=== PATIENT | female | born 1955 | race Caucasian/White ===

== ENCOUNTER 2016-05-27 13:02 | Emergency (ER) | payer BC ==
[2016-05-27] MEDS ORDERED: NS 500 ML IV ONE (13:58)
--- NOTE | 2016-05-27 13:58 | EDPHY ---
H & P Time Seen by Provider: 05/27/16 13:16 HPI/ROS: CHIEF COMPLAINT: drained feeling HISTORY OF PRESENT ILLNESS: The patient is a 61-year-old female with a history of diabetes, hypertension and high cholesterol as well as a genetic clotting disorder who presents to the emergency department with significant episodes of a drained feeling. Patient states she has had 3 episodes in last 3 weeks. Her most recent episode was today. She was walking in a store when she had a sudden sense of feeling tired. She had nausea with lightheadedness. She had to sit down. She also developed pain between her scapula and the back. This was moderate. Did not radiate. No jaw or chest pain. Patient has had no diaphoresis. No abdominal pain. REVIEW OF SYSTEMS: My complete review of systems is negative except as mentioned in the HPI. Past Medical/Surgical History: Includes diabetes, hypertension, high cholesterol, SVT Social history: The patient does not smoke. Smoking Status: Never smoked Physical Exam: Vitals noted GENERAL: Well-appearing, in no acute distress, alert. HEENT: Eyes normal to inspection, normal pharynx, no signs of dehydration. NECK: No thyromegaly, no lymphadenopathy, supple. RESPIRATORY: Clear to auscultation bilaterally, no rales, rhonchi or wheezing. CVS: Regular rate and rhythm, no rubs, murmurs, or gallops. ABDOMEN: Soft, nontender, nondistended, no organomegaly. BACK: Normal to inspection, no CVA tenderness. SKIN: Normal color, no rash, warm, dry. No pallor. EXTREMITIES: No pedal edema, no calf tenderness, no Homans sign or cords, no joint swelling. NEURO/PSYCH: Higher functions: Alert and Oriented. Normal speech and cognition. Normal mood and affect. Cranial nerves: Normal as tested. Cerebellar: Normal as tested. Good finger to nose, good [id number], normal gait. Peripheral exam: [Normal motor exam. Normal sensation. Normal reflexes. Constitutional: Initial Vital Signs Temperature (C) 36.5 C 05/27/16 13:04 Heart Rate 75 05/27/16 13:04 Respiratory Rate 14 05/27/16 13:04 Blood Pressure 166/98 H 05/27/16 13:04 O2 Sat (%) 97 05/27/16 13:04 O2 Delivery Mode Room Air Allergies/Adverse Reactions: No Known Allergies Allergy (Unverified 05/11/16 22:59) Home Medications: Medication Instructions Recorded Benicar 05/11/16 Celexa 05/11/16 Crestor 05/11/16 Metformin HCl 05/11/16 Hydrocodone/APAP /325 [[place] 1 each PO Q4-6PRN PRN #15 tab 05/12/16 5/325 (*)] Medical Decision Making - Diagnostics EKG Interpretation: EKG shows normal sinus rhythm, normal rate, normal axis, normal intervals. There are no ST or T-wave abnormalities. EKG is normal as interpreted by me. ED Course/Re-evaluation: In the emergency department I discussed possible etiologies with the patient. I answered all her questions. IV was placed. Laboratory studies, CT imaging and EKG were ordered. Patient's laboratory studies were unremarkable. CO2 was slightly low at 20. Her white count was normal at 7. She was not anemic. Her troponin was negative. Her chemistry, lipase and LFTs were normal. 15 15: I discussed the results with the patient. I answered all her questions. I am awaiting CT results. The patient states she is feeling better. CT of the head: Please refer the dictated report by Dr. Nghia Whaley. Negative. CT angio of the chest: Please refer the dictated report by Dr. Nhgia Whaley. No pulmonary embolus or dissection. The patient has a 4 cm ascending aneurysm. I discussed the results with Dr. Paulino from Cardiology. He will follow up the patient in his office. I discussed the results with the patient. I answered all her questions. At the time of discharge she was doing well. She had no focal deficits. She denies chest pain. She will follow up with her primary care physician. She is given warnings prior to leaving. She will return with worsening symptoms. Differential Diagnosis: My differential includes but is not limited to pulmonary embolus, aortic aneurysm, dissection, ACS, acute [place], electrolyte abnormality, sugar abnormality , CVA, vasovagal episode, dysrhythmia - Data Points Laboratory Results: Laboratory Results 05/27/16 13:55 05/27/16 13:55 05/27/16 13:55 WBC 7.02 10^3/uL (3.80-9.50) RBC 4.44 10^6/uL (4.18-5.33) Hgb 13.3 g/dL (12.6-16.3) Hct 39.1 % (38.0-47.0) MCV 88.1 fL (81.5-99.8) MCH 30.0 pg (27.9-34.1) MCHC 34.0 g/dL (32.4-36.7) RDW 13.4 % (11.5-15.2) Plt Count 272 10^3/uL (150-400) MPV 10.8 fL (8.7-11.7) Neut % (Auto) 62.9 % (39.3-74.2) Lymph % (Auto) 28.9 % (15.0-45.0) Parmer % (Auto) 6.3 % (4.5-13.0) Eos % (Auto) 0.9 % (0.6-7.6) Baso % (Auto) 0.6 % (0.3-1.7) Nucleat RBC Rel Count 0.0 % (0.0-0.2) Absolute Neuts (auto) 4.42 10^3/uL (1.70-6.50) Absolute Lymphs (auto) 2.03 10^3/uL (1.00-3.00) Absolute Monos (auto) 0.44 10^3/uL (0.30-0.80) Absolute Eos (auto) 0.06 10^3/uL (0.03-0.40) Absolute Basos (auto) 0.04 10^3/uL (0.02-0.10) Absolute Nucleated RBC 0.00 10^3/uL (0-0.01) Immature Gran % 0.4 % (0.0-1.1) Immature Gran # 0.03 10^3/uL (0.00-0.10) D-Dimer 0.30 ug/mLFEU (0.00-0.50) Sodium 143 mEq/L (134-144) Potassium 4.0 mEq/L (3.5-5.2) Chloride 108 mEq/L (97-110) Carbon Dioxide 20 L mEq/l (22-31) Anion Gap 15 mEq/L (8-16) BUN 16 mg/dL (7-23) Creatinine 0.8 mg/dL (0.6-1.0) Estimated GFR > 60 Glucose 102 H mg/dL (70-100) Calcium 9.4 mg/dL (8.5-10.4) Total Bilirubin 0.4 mg/dL (0.1-1.4) Conjugated Bilirubin 0.1 mg/dL (0.0-0.5) Unconjugated Bilirubin 0.3 mg/dL (0.0-1.1) AST 30 IU/L (14-46) ALT 44 IU/L (9-52) Alkaline Phosphatase 96 IU/L (38-126) Troponin I < 0.012 ng/mL (0-0.034) Total Protein 7.6 g/dL (6.3-8.2) Albumin 4.2 g/dL (3.5-5.0) Lipase 126.0 IU/L (23-300) Medications Given: Discontinued Medications Sodium Chloride (Ns) 500 mls @ 0 mls/hr IV ONCE ONE PRN Reason: As Directed Stop: 05/27/16 13:59 Last Admin: 05/27/16 14:12 Dose: 500 mls Departure - Departure Disposition: Home, Routine, Self-Care Clinical Impression: Lightheaded Back pain Qualifiers: Back pain location: thoracic back pain Chronicity: acute Back pain laterality: midline Qualifier Code: (M54.6) Pain in thoracic spine Condition: Good Instructions: Back Pain (ED), Lightheadedness (ED) Additional Instructions: Return with worsening symptoms or any other concerns. You have been given follow-up information for Cardiology. You have a 4 cm ascending aortic aneurysm. Please call Saturday to make an appointment. You also need follow up with a primary care physician. Referrals: [facility] [Provider Group] - 5-7 days, call for appt. Kimmie Canchola MD [Medical Doctor] - 5-7 days, call for appt.
[2016-05-27 14:06] LABS: % IMMATURE GRANULYOCYTES 0.4 % (0.0-1.1); ABSOLUTE IMMATURE GRANULOCYTES 0.03 10^3/uL (0.00-0.10); ADD DIFF? NO; ADD MORPH? NO; ADD SCAN? NO; ATYPICAL LYMPHOCYTE FLAG 10 (0-99); FRAGMENT RBC FLAG 0 (0-99); HEMATOCRIT 39.1 % (38.0-47.0); HEMOGLOBIN 13.3 g/dL (12.6-16.3); LEFT SHIFT FLG 0 (0-99); LIPEMIA HEMOLYSIS FLAG 90 (0-99); MEAN CELL VOLUME 88.1 fL (81.5-99.8); MEAN PLATELET VOLUME 10.8 fL (8.7-11.7); PLATELET CLUMPS FLAG 20 (0-99); PLATELET COUNT 272 10^3/uL (150-400); RED BLOOD CELL COUNT 4.44 10^6/uL (4.18-5.33); RED CELL DISTRIBUTION WIDTH 13.4 % (11.5-15.2)
--- NOTE | 2016-05-27 14:11 | CPEKG ---
Heart Rate: 68 RR Interval: 882 P-R Interval: 208 QRSD Interval: 92 QT Interval: 428 QTC Interval: 456 P [place]: 51 QRS [place]: 5 T Wave [place]: 16 EKG Severity - NORMAL ECG - EKG Impression: SINUS RHYTHM Electronically Signed By: Maranda Stanford 27-May-2016 15:11:20
[2016-05-27 14:22] VITALS: O2SAT 96
[2016-05-27 14:22] LABS: ALANINE AMINOTRANSFERASE 44 IU/L (9-52); ALBUMIN 4.2 g/dL (3.5-5.0); ALKALINE PHOSPHATASE 96 IU/L (38-126); ANION GAP 15 mEq/L (8-16); ASPARTATE AMINOTRANSFERASE 30 IU/L (14-46); BILIRUBIN,TOTAL 0.4 mg/dL (0.1-1.4); BILIRUBIN-CONJUGATED 0.1 mg/dL (0.0-0.5); BILIRUBIN-UNCONJUGATED 0.3 mg/dL (0.0-1.1); CALCIUM 9.4 mg/dL (8.5-10.4); CARBON DIOXIDE 20 mEq/l (22-31); CHLORIDE 108 mEq/L (97-110); CREATININE 0.8 mg/dL (0.6-1.0); GLOMERULAR FILTRATION RATE > 60; GLUCOSE 102 mg/dL (70-100); SODIUM 143 mEq/L (134-144); TOTAL PROTEIN 7.6 g/dL (6.3-8.2)
[2016-05-27 14:33] LABS: TROPONIN I < 0.012 ng/mL (0-0.034)
[2016-05-27] MEDS ORDERED: IOPAMIDOL (ISOVUE 370) 75 ML BTL IV ONE ×2 (14:40→15:12)
--- NOTE | 2016-05-27 15:18 | CT ---
CT Scan of the Head (Without Contrast) Clinical Indications: 61-year-old female who sustained a left wrist fracture on May 11, 2016, a nd since then has had a couple of episodes of weakness, lightheadedness, and near-syncope. Technique: Axial CT images were acquired from the foramen magnum through the skull vertex, without i ntravenous contrast. Soft tissue, subdural, and bone windows were reviewed on the computer workstati on. Images were reformatted at 5.00 and 1.25 mm increments, and are reformatted in sagittal and brandi nal planes. DFOV is 25.0 cm. Dose reduction techniques were utilized. Comparison Study: Unenhanced CT scan of the brain, dated May 12, 2016. Findings: There are no new mass lesions identified, and there is no evidence of an acute or subacute intracranial hemorrhage, or an acute infarct. The ventricles and subarachnoid spaces are normal in s ize for this age group. The bone windows reveal no sign of a fracture. The visualized paranasal sin uses and mastoid air cells are free of fluid. There is trace mucosal thickening in the maxillary sinu ses. There is some faint mural calcification of the cavernous carotid arteries. The craniocervical ju nction, sella turcica, calcified pineal gland, and the orbits are unremarkable. There is some physiol ogic interhemispheric falcine calcification. The previously questioned tiny serpentine-shaped venous varix along the posterior left interhemispheric region is currently much less noticeable, with no con vincing abnormality in this location. If there is continuing clinical concern regarding the patient's symptoms, MR imaging could be considered, if otherwise not contraindicated. Impression: There is no acute intracranial abnormality, or substantial change from May 12, 2016 . Results were called to Dr. Maranda Stanfrod. A test result has been communicated to a licensed care provider and documented in [employer], 3:14:10 PM , 05/27/2016, [employer] Message ID [id number].
--- NOTE | 2016-05-27 15:33 | CT ---
Contrast-Enhanced CT Scan of the Chest (CT Angiography) Clinical History: 61-year-old female who sustained a prior left wrist fracture and has complained of some pain across the upper back with nausea and lightheadedness. Rule out PE. The patient has a histo ry of chronic hypertension and diabetes. Technique: A timing bolus was used. The patient received 90 mL of IV Isovue-370 without complication. A multidetector helical CT scan was obtained from the base of the neck inferiorly to the upper abdom en, reformatted at 1.50 and 4/3 mm increments, and reviewed at a variety of window/level settings. Mu ltiplanar reconstructions were reviewed on the workstation. The DFOV is 36.0 cm. A dose reduction pro tocol was used. Comparison Study: None. Findings: CT Angiography of the Chest: The main pulmonary artery, the main right and the main left pulmonary ar teries, and the first, second, third order pulmonary artery segments are contrast-opacified. There is no filling defect to suggest acute or chronic thromboemboli. There is no interventricular septal bow ing. There is no reflux of contrast into the intrahepatic IVC. There is no pericardial effusion. Ther e is borderline-aneurysmal dilatation of the ascending thoracic aorta, measuring 4.0 x 4.0 cm at the crossing right pulmonary artery. The descending thoracic aorta at this level measures 2.2 x 2.4 cm. T here is an aberrant right subclavian artery which crosses behind the esophagus. There is no evidence of aneurysm. The visualized upper abdominal aorta is normal. Contrast-Enhanced CT Scan of the Chest: The visualized portions of the thyroid gland are normal. Ther e is no axillary or intrathoracic adenopathy. There are some minor dependent changes seen posteriorly . There is no focal alveolar consolidation, pulmonary nodule, or pleural effusion. The osseous struct ures are notable for some degenerative features of the thoracic spine and trace mid-dextrothoracic cu rvature. There is no aggressive lesion. The subcutaneous tissues are unremarkable. The visualized upp er abdomen is notable for some mild hepatic steatosis. There is a heterogeneous appearance of the spl een consistent with the arterial phase of contrast. Impression: 1. There is no CT evidence of pulmonary artery thromboemboli. 2. Borderline-aneurysmal dilatation of the ascending thoracic aorta, measuring 4.0 cm with no dissect ion or mediastinal hematoma. There is also an aberrant right subclavian artery. Results were discussed with Dr. Maranda Stanford. A test result has been communicated to a licensed care provider and documented in [employer], 3:22:07 PM , 05/27/2016, [employer] Message ID [id number].
[2016-05-27 15:45] VITALS: BP 139/91; PULSE 70; RESP 16; TEMP 97.9
== END 2016-05-27 15:44 | disposition home or self-care (01) ==
DX: R42 Dizziness and giddiness (principal); M54.6 Pain in thoracic spine; E11.9 Type 2 diabetes mellitus without complications; I10 Essential (primary) hypertension

== ENCOUNTER 2017-03-24 15:43 | Emergency (ER) | payer BC ==
[2017-03-24 15:52] VITALS: TEMP 98.6
--- NOTE | 2017-03-24 17:06 | EDPHY ---
HPI/HX/ROS/PE/MDM Narrative: CHIEF COMPLAINT: Head injury HPI: The patient is a 62 y/o female complaining of nausea and vomiting following a head injury. Saturday night, 4 days ago, she was chasing her dog in [place] when she slipped on ice and fell. She initially didn't notice that she had hit her head. The next morning she noticed a bump on the back of her head but remained otherwise asymptomatic. Saturday she woke up and felt nauseated. Later in the afternoon, she became sensitive to lights and noise. That night, as she drove up to [place], she began feeling motion sick. She threw up when she got home and then went to bed. She slept until noon today but her symptoms were still present prompting her visit. She denies taking any anticoagulants. She denies any other associated symptoms. REVIEW OF SYSTEMS: Aside from elements discussed in the HPI, a comprehensive 10-point review of systems was reviewed and is negative. 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 ENT:Eyes are normal to inspection. ENT inspection normal. Neck: Normal inspection. Full range of motion. Respiratory:No respiratory distress. Breath sounds normal bilaterally. Cardiovascular: Regular rate and rhythm. Strong peripheral pulses. Normal cap refill. Abdomen:The abdomen is nontender to palpation. There are no peritoneal signs. There are normal bowel sounds. Back: Normal to inspection. No tenderness to palpation. Skin: Normal color. No rash. Warm and dry. Extremities: Normal appearance. Full range of motion. Neuro: Oriented x3. Normal motor function. Normal sensory function. ED Course: I advised the patient that a CT was not necessarily warranted as she has symptoms only of a concussion and not of any other neurologic precesses. She has had two other CTs this year. She agrees to not have a CT. Concussion protocol given. Follow-up and return precautions given. MDM: This patient presents with signs and symptoms of concussion, a few days after minor head injury. She is not on anticoagulants and is fairly low risk for intracranial bleed. I would typically perform a CTH to rule out this possibility, but I note that this patient's chart indicates that she has undergone several CT's within the last year, so I had an extensive discussion with her regarding the choice of testing. Ultimately, the patient has decided to decline CTH at this time, which I think is a reasonable decision. She is fully aware of our inability to 100% exclude potentially serious injury without testing. We discussed strict return precautions. General Time Seen by Provider: 03/24/17 17:03 Initial Vital Signs: Initial Vital Signs Temperature (C) 37.0 C 03/24/17 15:49 Heart Rate 91 03/24/17 15:49 Respiratory Rate 16 03/24/17 15:49 Blood Pressure 123/75 H 03/24/17 15:49 O2 Sat (%) 97 03/24/17 15:49 O2 Delivery Mode Room Air Allergies/Adverse Reactions: No Known Allergies Allergy (Unverified 05/11/16 22:59) Home Medications: Medication Instructions Recorded Celexa 05/11/16 Crestor 05/11/16 Departure - Departure Disposition: Home, Routine, Self-Care Clinical Impression: Concussion Condition: Good Instructions: Concussion (ED) Additional Instructions: 1. Use Tylenol or ibuprofen as needed for headache. DO NOT USE ASPIRIN. 2. Brain rest while symptoms are present. Your symptoms could last days to weeks. Avoid screen time including TV, computers, phones, and video games. It is important to avoid any activities that could put you at risk for another head injury while your symptoms are present. No bicycling, contact sports, skiing, or other risky activities. Expect a follow up call from us in 10-14 days to discuss any ongoing concussion symptoms. They will refer you to a head injury specialist if necessary. 3. Follow up with your primary care provider in the next 3-4 days if symptoms do not improve. 4. Return to the Emergency Department if you develop a severe headache, numbness or weakness in your extremities, difficulty speaking, difficulty walking, uncontrollable vomiting, or other worsening of condition. Referrals: Stefano Poe [Primary Care Provider] - As per Instructions Report Scribed for: Gamaliel Johnson Report Scribed by: Olga Gonzalez Date of Report: 03/24/17 Time of Report: 17:05 Physician Review and Approval Statement: Portions of this note were transcribed by an ED scribe. I personally performed the history, physical exam, and medical decision making; and confirm the accuracy of the information in the transcribed note.
[2017-03-24] MEDS ORDERED: ONDANSETRON 4MG PREPACK#2 BTL TAKEHOME ONE (17:32)
[2017-03-24] MEDS ORDERED: ACETAMINOPHEN 500 MG TAB PO ONE (17:58)
[2017-03-24] MEDS ORDERED: ONDANSETRON DISINTEGRATING 4 MG TAB PO ONE (17:58)
[2017-03-24 18:25] VITALS: BP 196/99; PULSE 66; RESP 18; O2SAT 95
== END 2017-03-24 18:27 | disposition home or self-care (01) ==
DX: S06.0X0A Concussion without loss of consciousness, initial encounter (principal); W00.0XXA Fall on same level due to ice and snow, initial encounter; Y93.02 Activity, running

== ENCOUNTER 2017-05-04 17:29 | Emergency (ER) | payer BC ==
[2017-05-04 17:34] VITALS: PULSE 73; RESP 16
[2017-05-04] MEDS ORDERED: TDAP ADULT 0.5 ML INJ (BOOSTRIX) IM ONE (17:48)
[2017-05-04] MEDS ORDERED: LET GEL TOPICAL 1 EA SYR TP ONE ×2 (17:50→17:56)
--- NOTE | 2017-05-04 18:28 | EDPHY ---
H & P Stated Complaint: missed last step of a ladder, fell back lac to back of head no LOC Time Seen by Provider: 05/04/17 17:41 HPI/ROS: Chief complaint: Head injury History of present illness: This is a 62-year-old female, who reports herself as generally healthy, on no blood thinners, who presents to the emergency department for head injury. Patient was stepping down a small ladder when she missed the last step, lost her balance and fell backwards striking her head against the ground. She has some trouble remembering the event immediately after the injury. Although she does not think she fully lost consciousness. She has noted a cut to the left side of her head. Bleeding has been controlled. Minimal discomfort. She denies pain in, our trauma to other parts of body including neck, back, chest, abdomen, pelvis or extremities. No neurologic symptoms including no significant headache, no paresthesias, no weakness or paralysis, no bowel or bladder dysfunction. She is unsure of her last tetanus shot. Review of systems: A 10 point review of systems was obtained and other than described above was negative - Personal History Current Tetanus Diphtheria and Acellular Pertussis (TDAP): Unsure - Medical/Surgical History Hx Asthma: No Hx Chronic Respiratory Disease: No Hx Diabetes: No Hx Cardiac Disease: No Hx Renal Disease: No Hx Cirrhosis: No Hx Alcoholism: No Hx HIV/AIDS: No Hx Splenectomy or Spleen Trauma: No Other PMH: DM2, high BP, high cholesterol - Social History Smoking Status: Never smoked - Physical Exam Exam: General Appearance: Alert, nontoxic. Eyes: PERRLA ENT: No hemotympanum, no Greenberg sign, no raccoon eyes Respiratory: Lungs clear to auscultation bilaterally Cardiac: Regular rate and rhythm. Gastrointestinal: Bowel sounds normal. Abdomen soft, nondistended, nontender. Neurological: Alert and oriented x4. Cranial nerves 2-12 grossly intact. Strength and sensation intact and symmetrical. Ambulating without difficulty. Skin: 1 cm laceration left parietal scalp. Otherwise a head-to-toe examination does not reveal lesions consistent with trauma. Musculoskeletal: Mild tenderness around the laceration noted above without crepitus or bony deformity. The rest of the head is nontender. The spine is nontender to palpation along its entire length without crepitus, bony deformity or step-off. Chest wall intact palpation. Moving all extremities without difficulty. Constitutional: Initial Vital Signs Temperature (C) 36.9 C 05/04/17 17:31 Heart Rate 73 05/04/17 17:31 Respiratory Rate 16 05/04/17 17:31 Blood Pressure 171/94 H 05/04/17 17:31 O2 Sat (%) 96 05/04/17 17:31 O2 Delivery Mode Room Air Allergies/Adverse Reactions: No Known Allergies Allergy (Unverified 05/11/16 22:59) Home Medications: Medication Instructions Recorded Celexa 05/11/16 Crestor 05/11/16 Toprol Xl 50 mg (*) 05/04/17 Medical Decision Making - Diagnostics Imaging Results: Imaging Impressions Head CT 05/04/17 17:47 Impression: Negative noncontrast CT of the head with no intracranial posttraumatic sequela identified. A preliminary report was called to the Emergency Department. Imaging: Discussed imaging studies w/ scallop cutter Radiologist Procedures: Procedure: Laceration repair. Verbal consent was obtained from the patient. The 1 cm laceration on the left parietal scalp was anesthetized in the usual fashion. The wound was irrigated, draped and explored to its base with a gloved finger. There were no deep structures involved. No tendon injury was identified. The wound was repaired with 2 tripp. The wound repair was simple. The procedure was performed by myself. ED Course/Re-evaluation: Patient seen under the supervision of my secondary supervising physician Dr. Mak Feliz. Patient presents to the emergency department for a head injury. She is nontoxic. She has a nonfocal neurologic exam. We have discussed the risks and benefits of a CT scan, she would like to pursue one. This is obtained and negative. By history and physical exam I do not appreciate evidence of other trauma. The wound has been cleaned and repaired. Home care has been discussed. Her tetanus is updated. She is to follow up with her primary care doctor for recheck. Strict return precautions are given. Patient voiced understanding and agreement with plan. Differential Diagnosis: Included but not limited to soft tissue injury, bony fracture, concussion, intracranial injury - Data Points Medications Given: Discontinued Medications Diphtheria/Tetanus/Acell Pertussis (Boostrix) 0.5 ml IM .ONCE ONE Stop: 05/04/17 17:49 Last Admin: 05/04/17 18:07 Dose: 0.5 ml Tetracaine/Epinephrine/Lidocaine (Let Gel Topical) 1 ea TP EDNOW ONE Stop: 05/04/17 17:57 Last Admin: 05/04/17 18:07 Dose: 1 ea Departure - Departure Disposition: Home, Routine, Self-Care Clinical Impression: Head injury Qualifiers: Encounter type: initial encounter Qualified Code(s): S09.90XA - Unspecified injury of head, initial encounter Scalp laceration Qualifiers: Encounter type: initial encounter Qualified Code(s): S01.01XA - Laceration without foreign body of scalp, initial encounter Condition: Good Instructions: Laceration (ED), Head Injury (ED) Additional Instructions: Follow-up with her primary care doctor next week for recheck [place] to be removed in 7-10 days If symptoms worsen or new symptoms develop return to the emergency room for recheck Referrals: Stefano Poe [Primary Care Provider] - As per Instructions
[2017-05-04 19:03] VITALS: BP 160/84; TEMP 96.8; O2SAT 94
== END 2017-05-04 19:03 | disposition home or self-care (01) ==
PROC: 0HQ0XZZ Repair Scalp Skin, External Approach (ICD-10-PCS; principal; 2017-05-04)
DX: S09.90XA Unspecified injury of head, initial encounter (principal); S01.01XA Laceration without foreign body of scalp, initial encounter; E11.9 Type 2 diabetes mellitus without complications; I10 Essential (primary) hypertension; Z23 Encounter for immunization; W11.XXXA Fall on and from ladder, initial encounter; Y93.89 Activity, other specified

== ENCOUNTER 2018-05-22 15:20 | Observation (INO) | payer BC ==
--- NOTE | 2018-05-22 15:42 | EDPHY ---
HPI/HX/ROS/PE/MDM Narrative: CHIEF COMPLAINT: Nausea, lightheadedness, headache, back pain HISTORY OF PRESENT ILLNESS: The patient is a 63 y/o female with a prior history of hypertension not currently medicated, borderline diabetes, and known dilation of her ascending aorta who arrives complaining of two episodes of acute onset nausea, lightheadedness, headache, and back pain over the last 24 hours. Last night she sat down at her computer and had sudden nausea, bilateral neck pain, dizziness, and lightheadedness that she describes as if "I don't lay down I will lose consciousness." She additionally had the sensation of indigestion during this episode. It last for several hours into the night, though she was eventually able to sleep. Upon waking this morning she felt improved and drove into [place] from her home in [place] for business. About 30 minutes prior to arrival here all her symptoms again "hit out of the blue." She describes feeling "like all the sudden my body was shutting down." She currently has centralized midthoracic back pain as well. She denies worse than baseline diaphoresis, unilateral weakness or paresthesias, abdominal pain, fever, chills , chest pain, shortness of breath, palpitations, vomiting, diarrhea, hematuria, dysuria, polyuria. No known renal disease. No history of blood clots. REVIEW OF SYSTEMS: Aside from elements discussed in the HPI, a comprehensive 10-point review of systems was reviewed and is negative. PAST MEDICAL HISTORY: Hyperhidrosis, borderline diabetes - no meds, hypertension - taken off medications one year ago. On Celexa. "Enlarged" ascending aorta, "MTHFR gene makes me prone to clots." SOCIAL HISTORY: Lives in [place]. PCP: Dr. Nguyen. Retail Mortgage Banker: Dr. Perez. VITAL SIGNS: Reviewed by me. BP 231/133. GENERAL: Well-developed, well-nourished, resting comfortably in no respiratory distress. HEENT: Atraumatic. Eyes: No icterus, no injection. Mouth: moist mucous membranes. No erythema or lesions. Neck: supple with no adenopathy. LUNGS: Clear to auscultation bilaterally, no wheezes, rhonchi or rales. CARDIAC: Regular rate and rhythm, no rubs, murmurs or gallops. ABDOMEN: Soft, obese, nontender, nondistended. BACK: No CVA tenderness. EXTREMITIES: No trauma. No edema. Range of motion is normal throughout. NEURO: Alert and oriented, grossly nonfocal. SKIN: Cool and dry, no rash. PSYCHIATRIC: Normal mentation, no agitation. Portions of this note were transcribed by a veterinary medical officer. I personally performed a history, physical exam, medical decision making, and confirmed accuracy of information the transcribed note. ED Course: This is a 63 y/o female who presents with her second episode of acute onset nausea, lightheadedness, headache, and midback pain in the last 24 hours. Her exam is largely unremarkable aside from notable hypertension at 231/133. She does not appear acutely ill, but I am concerned for possible dissection given her history of a dilated aorta and current back pain. Plan for IV, labs, chest x -ray, EKG. 2.5mg IV Esmolol drip drip ordered. The 12 lead EKG was interpreted by myself. Sinus mechanism. See hard copy and/ or "tracemaster" electronic copy for interpretation. Chest x-ray: possible right infiltrate. 1638: Patient's BP is currently 166/[address] scan. Esmolol order will be held. CTA Chest: 4.1cm aorta dilatation, stable to prior imaging. Spoke with hospitalist service. Dr. Solomon accepts admission for chest pain as well as uncontrolled high blood pressure. MDM: After history and physical examination, the differential for the patient's presenting complaints was considered, including but not limited to, myocardial ischemia, acute coronary syndrome, pulmonary embolus, aortic dissection, GI causes, chest wall pain, pleural inflammation and pulmonary infectious causes. - Data Points Imaging Results: Chest X-Ray 05/22/18 15:46 Impression: Possible early pneumonia right lower lung medially. This could be confirmed with lateral film radiography. CT Angiogram chest and abd Impression: 1. No aortic dissection or acute process. 2. Minimally dilated ascending aorta (4.1 cm AP). Recommend intermittent surveillance. 3. Normal caliber abdominal aorta with minimal calcified plaque. Widely patent renal arteries. 4. No acute thromboembolic disease. 5. Clear lungs. No acute pulmonary process or explanation for back pain. 6. No intra-abdominal mass, lymphadenopathy or acute process. Findings discussed with Emergency Department physician, Juju Brown MD, on , 16:45. Dictated By: Aristeo Lew MD Imaging: Discussed imaging studies w/ call center recruiter Radiologist, I viewed and interpreted images myself Laboratory Results: Laboratory Results 05/22/18 15:50 05/22/18 15:50 Medications Given: Discontinued Medications Acetaminophen (Tylenol) 650 mg PO Q4HRS PRN PRN Reason: Pain, Mild/Fever, Can Take PO Stop: 11/18/18 18:26 Last Admin: 05/24/18 09:27 Dose: 650 mg Aspirin Buffered (Aspirin Ec) 81 mg PO DAILY [facility] Stop: 11/19/18 11:44 Last Admin: 05/24/18 09:20 Dose: 81 mg Atorvastatin Calcium (Lipitor) 20 mg PO DAILY [facility] Stop: 11/20/18 08:59 Last Admin: 05/24/18 09:20 Dose: 20 mg Citalopram Hydrobromide (Celexa) 40 mg PO DAILY [facility] Stop: 11/19/18 08:59 Last Admin: 05/24/18 09:20 Dose: 40 mg Enoxaparin Sodium (Lovenox) 40 mg SC DAILY [facility] Stop: 11/19/18 08:59 Last Admin: 05/24/18 09:22 Dose: Not Given Hydralazine HCl (Apresoline) 10 mg IVP Q6HRS PRN PRN Reason: systolic over 170 Stop: 11/18/18 18:30 Last Admin: 05/23/18 11:54 Dose: 10 mg Esmolol HCl/Sodium Chloride (Brevibloc 10 Mg/Ml Premix) 250 mls @ 0 mls/hr IV EDNOW ONE; Titrate PRN Reason: Protocol Stop: 05/22/18 15:58 Last Admin: 05/22/18 18:09 Dose: Not Given Influenza Virus Vaccine Quadrival (Flulaval Quad [id number] (6mo+)) 0.5 ml IM .ONCE ONE Stop: 05/24/18 12:31 Last Admin: 05/24/18 12:52 Dose: 0.5 ml Ketorolac Tromethamine (Toradol) 15 mg IVP Q6HRS PRN PRN Reason: Pain, Moderate Stop: 05/28/18 17:59 Last Admin: 05/23/18 23:44 Dose: 15 mg Lisinopril (Zestril) 10 mg PO DAILY [facility] Stop: 11/19/18 11:44 Last Admin: 05/24/18 09:20 Dose: 10 mg Metoprolol Succinate (Toprol Xl) 25 mg PO DAILY [facility] Stop: 11/19/18 16:14 Last Admin: 05/24/18 09:20 Dose: 25 mg Morphine Sulfate (Morphine) 4 mg IVP ONCE ONE Stop: 05/23/18 12:47 Last Admin: 05/23/18 12:54 Dose: 4 mg Ondansetron HCl (Zofran) 4 mg IVP Q4HRS PRN PRN Reason: Nausea/Vomiting, Can't Take PO Stop: 11/18/18 18:26 Last Admin: 05/23/18 16:56 Dose: 4 mg Ondansetron HCl (Zofran Odt) 4 mg PO Q4HRS PRN PRN Reason: Nausea/Vomiting, Use 1st Stop: 11/18/18 18:26 Last Admin: 05/23/18 23:31 Dose: 4 mg Trazodone HCl (Trazodone) 100 mg PO HS [facility] Stop: 11/19/18 22:59 Last Admin: 05/23/18 23:26 Dose: 100 mg Point of Care Test Results: Chemistry 05/22/18 05/22/18 16:00 15:59 POC Sodium 140 mEq/L mEq/L (135-145) POC Potassium 3.8 mEq/L mEq/L (3.3-5.0) POC Chloride 104 mEq/L mEq/L (97-110) POC BUN 19 mg/dL mg/dL (7-23) POC Creatinine 0.8 mg/dL mg/dL (0.6-1.0) POC Glucose 119 mg/dL H mg/dL (70-100) POC Troponin I 0.02 ng/mL ng/mL (0.00-0.08) ISTAT H&H 05/22/18 16:00 POC Hgb 15.0 gm/dL gm/dL (12.6-16.3) POC Hct 44 % % (38-47) General Time Seen by Provider: 05/22/18 15:34 Initial Vital Signs: Initial Vital Signs Temperature (C) 36.8 C 05/22/18 15:31 Heart Rate 94 05/22/18 15:31 Respiratory Rate 18 05/22/18 15:31 Blood Pressure 204/130 H 05/22/18 15:31 O2 Sat (%) 97 05/22/18 15:31 O2 Delivery Mode Room Air Allergies/Adverse Reactions: No Known Allergies Allergy (Verified 05/22/18 15:30) Home Medications: Medication Instructions Recorded Citalopram Hydrobromide 40 mg PO DAILY 05/22/18 [Citalopram HBr] Herbals/Supplements -Info Only 1 tab PO DAILY 05/22/18 Acetaminophen [Tylenol 325mg (*)] 650 mg PO Q4HRS PRN tab 05/23/18 Atorvastatin Calcium [Lipitor 20 20 mg PO DAILY #30 tab 05/23/18 mg (*)] Lisinopril [Zestril 10 mg (*)] 10 mg PO DAILY #30 tab 05/23/18 Metoprolol Succinate Xr [Toprol Xl 25 mg PO DAILY #30 tab 05/24/18 25 mg (*)] Departure - Departure Disposition: [facility] Inpatient Acute Clinical Impression: Hypertension Qualifiers: Hypertension type: unspecified Qualified Code(s): I10 - Essential (primary) hypertension Chest pain Qualifiers: Chest pain type: unspecified Qualified Code(s): R07.9 - Chest pain, unspecified Condition: Fair Report Scribed for: Juju Brown Report Scribed by: Susanna Ayon Date of Report: 05/22/18 Time of Report: 16:33
[2018-05-22] MEDS ORDERED: ESMOLOL/NACL 250 ML IV ONE (15:57)
[2018-05-22] MEDS ORDERED: IOPAMIDOL (ISOVUE 370) 100 ML BTL IV ONE (16:10)
[2018-05-22 16:20] LABS: PLATELET COUNT 289 10^3/uL (150-400)
[2018-05-22 16:29] LABS: INR 0.96 (0.83-1.16)
[2018-05-22] MEDS ORDERED: ONDANSETRON DISINTEGRATING 4 MG TAB PO PRN (18:27)
[2018-05-22] MEDS ORDERED: PROTOCOL K PHOSPHATE 1 DOSE IV PRN (18:27)
[2018-05-22] MEDS ORDERED: PROTOCOL MAGNESIUM 1 DOSE IV PRN (18:27)
[2018-05-22] MEDS ORDERED: PROTOCOL POTASSIUM 1 DOSE MISC PRN (18:27)
[2018-05-22] MEDS ORDERED: NS 1,000 ML IV SCH (18:30)
[2018-05-22] MEDS ORDERED: hydrALAZINE 20 MG/ML VIAL IVP PRN (18:31)
--- NOTE | 2018-05-22 18:39 | PDGENHP ---
History and Physical - Chief Complaint chest pain - History of Present Illness Yesenia Brown is a 63 year old female with past medical history of hypertension hyperlipidemia and anxiety who presents to the ER with sudden onset of nausea dizziness lightheadedness and generalized discomfort along with pain between her shoulder blades. She states that last night she had a sudden onset of the symptoms she felt like she was going to pass out. Today she says she felt off. She was supposed to fly to [place] and was eating lunch in [place] when she had a sudden recurrence of chest discomfort that radiated to her back between her shoulder blades. She said she felt like her whole body was shutting down. She went to a local urgent care who checked her blood pressure and found that it was 220/112. She was referred to [facility] ER for further evaluation. Upon arrival to the ER she continued to have discomfort in her chest radiating to her back along with some nausea. Her blood pressure was noted to be elevated with a systolic around 220. On repeat her blood pressure had decreased to about 170 systolic and she said that her symptoms had all resolved. She denied any shortness of breath cough fevers chills diarrhea abdominal pain dysuria hematuria or other symptoms History Information - Allergies/Home Medication List Allergies/Adverse Reactions: No Known Allergies Allergy (Verified 05/22/18 15:30) Home Medications: Citalopram Hydrobromide [Citalopram HBr] 40 mg PO DAILY 05/22/18 [Last Taken 02/28] Herbals/Supplements -Info Only 1 tab PO DAILY 05/22/18 [Last Taken Unknown] I have personally reviewed and updated: family history, medical history, social history, surgical history - Past Medical History hypertension, hyperlipidemia Additional medical history: anxiety - Surgical History Reports: no pertinent surgical hx - Family History Positive for: CAD - Social History Smoking Status: Never smoked Alcohol Use: Occasionally Drug Use: None Review of Systems Review of Systems: ROS: 10pt was reviewed & negative except for what was stated in HPI & below Physical Exam Physical Exam: Temp Pulse Resp BP Pulse Ox 36.8 C 78 14 193/96 H 93 05/22/18 15:31 05/22/18 17:30 05/22/18 17:30 05/22/18 17:30 05/22/18 17:30 Constitutional: no apparent distress, appears nourished, not in pain Eyes: PERRL, anicteric sclera, EOMI Ears, Nose, Mouth, Throat: moist mucous membranes, hearing normal, ears appear normal, no oral mucosal ulcers Cardiovascular: regular rate and rhythym, no murmur, rub, or gallop, No edema Respiratory: no respiratory distress, no rales or rhonchi, clear to auscultation Gastrointestinal: normoactive bowel sounds, soft, non-tender abdomen, no palpable masses Genitourinary: no bladder fullness, no bladder tenderness Skin: warm, normal color, no rashes or abrasions, no fluctuance, no induration, No mottled Musculoskeletal: full muscle strength, no muscle tenderness, normal joint ROM, no joint effusions Psychiatric: interacting appropriately, not anxious, not encephalopathic, thought process linear Lymph, Heme, Immunologic: no cervical LAD, no supraclavicular LAD Lab Data & Imaging Review 05/22/18 15:50 05/22/18 15:50 WBC 7.58 10^3/uL (3.80-9.50) 05/22/18 15:50 RBC 4.79 10^6/uL (4.18-5.33) 05/22/18 15:50 Hgb 14.8 g/dL (12.6-16.3) 05/22/18 15:50 POC Hgb 15.0 gm/dL (12.6-16.3) 05/22/18 16:00 Hct 42.9 % (38.0-47.0) 05/22/18 15:50 POC Hct 44 % (38-47) 05/22/18 16:00 MCV 89.6 fL (81.5-99.8) 05/22/18 15:50 MCH 30.9 pg (27.9-34.1) 05/22/18 15:50 MCHC 34.5 g/dL (32.4-36.7) 05/22/18 15:50 RDW 13.0 % (11.5-15.2) 05/22/18 15:50 Plt Count 289 10^3/uL (150-400) 05/22/18 15:50 MPV 10.6 fL (8.7-11.7) 05/22/18 15:50 Neut % (Auto) 59.0 % (39.3-74.2) 05/22/18 15:50 Lymph % (Auto) 30.9 % (15.0-45.0) 05/22/18 15:50 [place] % (Auto) 6.3 % (4.5-13.0) 05/22/18 15:50 Eos % (Auto) 3.2 % (0.6-7.6) 05/22/18 15:50 Baso % (Auto) 0.5 % (0.3-1.7) 05/22/18 15:50 Nucleat RBC Rel Count 0.0 % (0.0-0.2) 05/22/18 15:50 Absolute Neuts (auto) 4.47 10^3/uL (1.70-6.50) 05/22/18 15:50 Absolute Lymphs (auto) 2.34 10^3/uL (1.00-3.00) 05/22/18 15:50 Absolute Monos (auto) 0.48 10^3/uL (0.30-0.80) 05/22/18 15:50 Absolute Eos (auto) 0.24 10^3/uL (0.03-0.40) 05/22/18 15:50 Absolute Basos (auto) 0.04 10^3/uL (0.02-0.10) 05/22/18 15:50 Absolute Nucleated RBC 0.00 10^3/uL (0-0.01) 05/22/18 15:50 Immature Gran % 0.1 % (0.0-1.1) 05/22/18 15:50 Immature Gran # 0.01 10^3/uL (0.00-0.10) 05/22/18 15:50 PT 13.0 SEC (12.0-15.0) 05/22/18 15:50 INR 0.96 (0.83-1.16) 05/22/18 15:50 D-Dimer < 0.27 ug/mLFEU (0.00-0.50) 05/22/18 15:50 POC Sodium 140 mEq/L (135-145) 05/22/18 16:00 Sodium 140 mEq/L (135-145) 05/22/18 15:50 POC Potassium 3.8 mEq/L (3.3-5.0) 05/22/18 16:00 Potassium 4.0 mEq/L (3.5-5.2) 05/22/18 15:50 POC Chloride 104 mEq/L (97-110) 05/22/18 16:00 Chloride 107 mEq/L (97-110) 05/22/18 15:50 Carbon Dioxide 23 mEq/l (22-31) 05/22/18 15:50 Anion Gap 10 mEq/L (6-14) 05/22/18 15:50 POC BUN 19 mg/dL (7-23) 05/22/18 16:00 BUN 20 mg/dL (7-23) 05/22/18 15:50 Creatinine 0.9 mg/dL (0.6-1.0) 05/22/18 15:50 POC Creatinine 0.8 mg/dL (0.6-1.0) 05/22/18 16:00 Estimated GFR > 60 05/22/18 15:50 Glucose 120 mg/dL (70-100) H 05/22/18 15:50 POC Glucose 119 mg/dL (70-100) H 05/22/18 16:00 Calcium 9.2 mg/dL (8.5-10.4) 05/22/18 15:50 POC Troponin I 0.02 ng/mL (0.00-0.08) 05/22/18 15:59 Troponin I < 0.012 ng/mL (0.000-0.034) 05/22/18 15:50 Visualized and Interpreted Chest x-ray results: Yes Assessment & Plan Assessment: Hypertensive Urgency- on arrival patient was systolic blood pressure above 220. Has a history of hypertension and was on Benicar in the past but was stopped by her PCP. Her primary care physician recently retired and she has not seen a doctor in over 6 months. No evidence of end-organ damage. Symptoms resolved with lowering of blood pressure. Initially plan was to start esmolol in the ER but her blood pressure dropped to 179 systolic ans so this was abandoned. -hydralazine 10 mg IV q.6 p.r.n. Systolic over 170 -monitor on telemetry -may need to go home on oral hypertensive medication Chest pain- may be her anginal equivalent. Heart score is 4 indicating need for further evaluation and risk stratification. I reviewed the EKG which shows no ischemic changes. CT also reviewed by myself and no evidence of pulmonary embolism or dissection hand shows a minimally dilated ascending aorta. I discussed the case with the ER physician. Troponins also negative so far. -cycle troponins q.6 -repeat EKG in the morning -monitor on telemetry -assuming negative troponins exercise stress test in the morning Hx of ascending aortic aneurysm- she has interval surveillance of this. stable currently. anxiety- takes Celexa for this. Continue here Prophylaxis- SCDs and Lovenox Fluids-intravenous saline Nutrition cardiac diet Electrolytes protocol ordered cor-full core Dispo-observation for hypertensive urgency and chest pain workup
[2018-05-22] MEDS: ACETAMINOPHEN 325 MG TAB PO PRN (21:57)
[2018-05-23 04:56] LABS: INR 1.02 (0.83-1.16); PROTIME(PATIENT) 13.6 SEC (12.0-15.0)
[2018-05-23 04:58] LABS: PLATELET COUNT 270 10^3/uL (150-400)
[2018-05-23] MEDS: ACETAMINOPHEN 325 MG TAB PO PRN (08:06)
--- NOTE | 2018-05-23 10:02 | CPEKG ---
Test Reason : OPEN Blood Pressure : / mmHG Vent. Rate : 074 BPM Atrial Rate : 074 BPM P-R Int : 184 ms QRS Dur : 087 ms QT Int : 391 ms P-R-T Axes : 049 -03 031 degrees QTc Int : 434 ms Sinus rhythm Confirmed by Pablito Perez ([id number]) on 05/23/2018 10:02:00 AM Referred By: Confirmed By:Pablito Perez
--- NOTE | 2018-05-23 10:58 | PDCARST ---
CAR Stress Test Results Type of Stress Test: TM stress test Indication: cp Description of Procedure: After informed consent was obtained, pt was exercised according to Jitendra Protocol. Monitoring was performed with standard stress production tester electrode placement. Vital signs were monitored according to protocol throughout the procedure. STRESS EKG AND HEMODYNAMIC DATA. Exercise time: 6: 30 min. This is equivalent to: 7.4 METS. Resting heart rate: 84 bpm. Resting blood pressure: 136/86 mmHg. Resting O2 saturation: 96 %. Peak heart rate: 167 bpm. This is 107 % of age predicted maximum heart rate response. Peak blood pressure: 184/90 mmHg. Exercise O2: 94 %. Arrhythmias : None. Reason for termination: The test was stopped due to maximal exertion. Symptoms: The patient experienced no typical symptoms of angina during stress or recovery. STRESS TEST ANALYSIS. Baseline ECG: SR. Stress ECG: sinus tach. No exercise induced ischemic ECG changes. Rhythm: no arrhythmias noted during exercise and recovery. Blood pressure: mild hypertensive blood pressure response to exercise. Exercise tolerance: The patient has not/ normal exercise tolerance adjusted for age and gender. Symptoms: No exercise induced symptoms. Impression: Stress ECG is negative for ischemia. The [place] Treadmill Score is + 6 consistent with low cardiovascular risk (<1% annual mortality). Conclusion: Low risk TM stress test.
[2018-05-23] MEDS: CITALOPRAM 20 MG TAB PO SCH (11:45)
[2018-05-23] MEDS: ASPIRIN EC 81 MG TAB PO SCH (11:45)
[2018-05-23] MEDS: LISINOPRIL 10 MG TAB PO SCH (11:45)
[2018-05-23] MEDS: ENOXAPARIN 40 MG/0.4 ML SYR SC SCH (12:05)
--- NOTE | 2018-05-23 12:15 | ASDISCHSUM ---
Discharge Information Plan Status:Home with No Needs Medically Cleared to Leave:05/22/2018 Discharge Date:05/22/2018 CM D/C Disposition:Home, Routine, Self-Care ADT D/C Disposition:Home, Routine, Self-Care Projected Discharge Date:05/22/2018 Transportation at D/C: Discharge Delay Reason: Follow-Up Date:05/22/2018 Discharge Slot: Final Diagnosis: Placement Information Patient Contact Information Contact Name:ERIC Relationship:Daughter Address: Work Phone: City:[place] Alternate Phone: State/Guidance Software Code:[place] Email: Financial Information Financial Class:BCOP Primary Plan Desc: OUT OF STATE [facility] Primary Plan Number:[id number] Secondary Plan Desc: Secondary Plan Number: Assessment Information LACE LACE Length of stay for Answers: Less than 1 day current admission Acuity / Level of Answers: No Care: Did the patient have an inpatient admission? Comorbidities - select Answers: Diabetes (uncontrolled or all that apply controlled) Other Notes: HTN; HLD # of Emergency department Answers: 1-2 visits in the last 6 months Social determinants Answers: Mental health diagnosis (anxiety, depression, pers onality disorders, etc.) Score: 6 Date Signed: 05/23/2018 12:14 PM Electronically Signed By:Courtney Gudino RN Intervention Information
[2018-05-23] MEDS: ONDANSETRON 4 MG/2 ML VIAL IVP PRN ×2 (12:59→16:56)
[2018-05-23] MEDS: METOPROLOL SUCCINATE XR 25 MG TAB PO SCH (16:35)
[2018-05-23] MEDS ORDERED: PROMETHAZINE HCL 25 MG/ML INJ IVP PRN (17:06)
[2018-05-23] MEDS: KETOROLAC 15 MG/1 ML SDV IVP PRN ×2 (17:35→23:44)
--- NOTE | 2018-05-23 17:39 | HOSPPROG ---
Hospitalist Progress Note Assessment/Plan: DIAGNOSES: * Hypertensive emergency with ongoing uncontrolled hypertension * Severe headache recalcitrant to therapy so far here * No bleed on CT scan of head * Interscapular chest pain and diaphoresis resolved, ruled out for myocardial infarction * Low risk treadmill stress test score of +6 * Hyperlipidemia LDL greater than 160 At this point the patient is still having ongoing severe headache pain with nausea vomiting but no neurologic symptoms. She is having as well severe hypertension through the day. Her interscapular symptoms are resolve and she does not appear to have any cardiac injury or acute cardiac problems. PLANS: * Continue analgesics and increase antiemetics to trying get control of her headache * Continue to titrate up her blood pressure medications * IV hydration as needed * With ongoing need for IV therapies here in the hospital for symptom management will need to change her to inpatient status SUBJECTIVE: On my 1st visit today the patient had some moderate headache but was otherwise feeling well with resolution of her interscapular discomfort and nausea Subsequently the patient has ongoing severe and recalcitrant headache pain that she describes as the worst pain she has ever had, and has been vomiting with no response to the IV Zofran No abdominal pain OBJECTIVE Vitals reviewed: High as blood pressure today 196/114 which was after lisinopril and hydralazine, other vitals normal and stable with no fever 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, 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: Sinus Exam: alert oriented initially appeared relaxed and comfortable, now in obvious anxiety and distress due to a headache pain and nausea skin warm dry color ok resps not labored lungs clear BSs heart regular abd soft nondistended nontender, bowel sounds present limbs warm, no edema iv site ok I reviewed her case with Amelia Schroeder of Cardiology who performed the patient' s treadmill stress test which was a low risk study with no abnormalities I ordered his CT scan of head and I reviewed the images of that which shows no evidence of bleeding mass and other significant abnormality Lab data: Troponins negative, basic met panel normal Hemoglobin A1c 6.2 LDL 162 CBC normal Objective: Vital Signs Temp Pulse Resp BP Pulse Ox 36.8 C 87 16 154/94 H 97 05/23/18 15:10 05/23/18 15:36 05/23/18 15:36 05/23/18 15:36 05/23/18 15:36 Laboratory Results 05/23/18 03:45 05/23/18 03:45 0105/23/18 05/24/18 06:59 06:59 06:59 Intake Total 900 Output Total 700 Balance 200 PT 13.6 SEC (12.0-15.0) 05/23/18 03:45 INR 1.02 (0.83-1.16) 05/23/18 03:45 - Time Spent With Patient Time Spent with Patient: greater than 35 minutes Time Spent with Patient: Greater than 35 minutes spent on this patients care, greater than 50% of time spent counseling, educating, and coordinating care regarding the above mentioned plan. ICD10 Worksheet Patient Problems: Problems Problem Status Onset Chest pain Acute Hypertension Acute
[2018-05-23] MEDS ORDERED: traZODone 100 MG TAB PO SCH (23:00)
--- NOTE | 2018-05-24 08:14 | GCON ---
DATE OF CONSULTATION: 05/23/2018 [employer]: Dr. Pablito Ash. We were asked by Dr. Kemal Patel to evaluate Ms. Yesenia Brown for her chest pain and multiple cardi ac risk factors. HPI: The patient is a very pleasant 63-year-old female with a past medical history significant for h ypertension, dyslipidemia, type 2 diabetes mellitus, and dilated ascending aorta, who presented to [facility] emergency department after onset of chest pain with radiation between the shoulder blades starting yesterday. She had 2 episodes that were quite concerning, lasting a couple of hours. This is associ ated with nausea, dizziness, and lightheadedness. Symptoms resolved after arriving to the emergency department. She was noted to have a blood pressure of 220/112. She was about to be started on esmol ol, but blood pressure dropped without any intervention. She has been noting a fairly severe headach e off and on that may be related to her blood pressure or the headache may be causing the elevated bl ood pressures. PAST MEDICAL HISTORY: 1. Hypertension. 2. Moderately dilated ascending aorta. 3. Dyslipidemia. 4. Type 2 diabetes mellitus. 5. Hypothyroidism. Please note that she has been off medications for these. FAMILY HISTORY: Positive for CAD within father in his 70s and mother had a pacemaker. SOCIAL HISTORY: Patient is a never smoker. She reports occasional alcohol intake. OUTPATIENT MEDICATIONS: Include citalopram and herbal supplements. ALLERGIES: No known drug allergies. REVIEW OF SYSTEMS: As per HPI. A complete 10-point review of systems was obtained and is negative e xcept for what is dictated in the HPI. PHYSICAL EXAMINATION: VITAL SIGNS: BP of 154/94, heart rate 87, respirations 16, O2 saturation 97% on room air, temp of 98.3 degrees Fahrenheit. GENERAL: She is a pleasant female, in no apparent dis tress. HEENT: Head is normocephalic, atraumatic. Eyes are without scleral icterus. HEART: Regula r rate and rhythm. No JVD noted. LUNGS: Clear to auscultation. ABDOMEN: Soft with normoactive ilan wel sounds. SKIN: Warm and dry skin. PSYCH: Normal mood and affect. : No Castillo. NEUROLOGIC: No focal deficits detected. CBC with WBC 6.61, hemoglobin 13.6, hematocrit 40.6, platelet count of 2 70. BMP: Sodium 138, potassium 4.1, chloride 109, CO2 21, BUN 22, creatinine 0.8, glucose 106. Hem oglobin A1c of 6.2%, triglycerides 219, total cholesterol 247, LDL of 162, HDL of 41, TSH of 3.13. 1 2-lead ECG personally interpreted demonstrates sinus rhythm with a leftward axis. Chest CT from 05/13, shows a dilated ascending aorta, measuring 4.1 cm. She has a minimally calcified plaque in t he abdominal aorta. IMPRESSION AND PLAN: Ms. Yesenia Brown is a 63-year-old female who presented with chest discomfort radiating to her back. 1. Chest pain. She has proceeded to treadmill stress test that shows a normal exercise tolerance wi thout EKG changes. She may be continued on medical management. 2. Hypertension. Her blood pressures are quite elevated throughout this hospitalization. She is ag reeable to initiating medical management. We will start lisinopril and Toprol given her history of d ilated aorta. She will follow up with Dr. Ash in the next few weeks. She is advised on following her home blood pressures. 3. Dyslipidemia. We reviewed her results of her cholesterol testing. In addition, she has findings of atherosclerosis in her aorta. She is agreeable to start medical management. She has been on Cre stor in the past. However, she has not been on any medications for quite some time and we will initi ate atorvastatin 20 mg p.o. daily. She will be followed with outpatient labs. 4. Dilated ascending aorta, measuring 4.1 cm. This is stable from previous findings. She will have routine surveillance with our office. /[id number]/MODL
[2018-05-24] MEDS ORDERED: ATORVASTATIN CALCIUM 20 MG TAB PO SCH (09:00)
[2018-05-24] MEDS: ENOXAPARIN 40 MG/0.4 ML SYR SC SCH ×2 (09:19→09:22)
[2018-05-24] MEDS: CITALOPRAM 20 MG TAB PO SCH (09:20)
[2018-05-24] MEDS: ASPIRIN EC 81 MG TAB PO SCH (09:20)
[2018-05-24] MEDS: LISINOPRIL 10 MG TAB PO SCH (09:20)
[2018-05-24] MEDS: METOPROLOL SUCCINATE XR 25 MG TAB PO SCH (09:20)
[2018-05-24] MEDS: ACETAMINOPHEN 325 MG TAB PO PRN (09:27)
[2018-05-24 10:58] VITALS: BP 115/69
--- NOTE | 2018-05-24 13:02 | PDDCSUM ---
Discharge Summary Discharge Summary: DISCHARGE DIAGNOSES: * hypertensive emergency * severe uncontrolled hypertension in a patient with prior history of hypertension but not on medicines at this time * chest pain at rest, resolved; rule out for myocardial infarction * severe headache with nausea but without neurologic symptoms, resolved, uncertain etiology PROCEDURES: CT angio of chest and abdomen which showed no evidence of dissection, or other cause of any of her symptoms, though her aortic root is at 4.[address] scan noncontrast of head showing no bleed or other evidence of because of headache Treadmill stress test with a Alston score of +6 indicating low risk HOSPITAL COURSE SUMMARY: This patient came to the hospital because of headache and chest discomfort and uncontrolled hypertension. She has a history of hypertension which was severe in the past but has not been on medicines for the past couple years or so. Her blood pressures were severely elevated on arrival here. She developed very severe headache with nausea vomiting here in the hospital. There were no neurologic changes. A CT scan showed no evidence of a bleed or other acute intracranial abnormality. Because he was having interscapular chest pain she had CT angio of the chest and abdomen which showed no dissection although she has a 4.1 cm aortic root diameter. She does not have hear any signs of heart failure, any arrhythmia, and her EKGs and troponins were nonischemic. She underwent treadmill stress testing which showed low risk with no abnormalities. The patient required significant titration for blood pressure control and management of her nausea and headache. Is point she is now asymptomatic from all of her pains in her nausea and is eating well. Her blood pressure is much better controlled at this point on some lisinopril and the metoprolol. She is felt stable for discharge. She understands that she will need to stay on blood pressure treatment. PENDING TEST RESULTS: None MEDICATION CHANGES: Addition of lisinopril 10 mg daily and 25 mg metoprolol daily for blood pressure Addition of atorvastatin for lipid control FOLLOW-UP PLAN: Is doctor Pablito Perez next week in [facility] She should have intermittent imaging to follow her aortic root for enlargement Greater than 35 minutes bedside and care coordination time today
--- NOTE | 2018-05-24 22:47 | CPEKG ---
Test Reason : OPEN Blood Pressure : / mmHG Vent. Rate : 092 BPM Atrial Rate : 093 BPM P-R Int : 196 ms QRS Dur : 091 ms QT Int : 361 ms P-R-T Axes : 059 -16 044 degrees QTc Int : 447 ms Sinus rhythm Left atrial enlargement Borderline left axis deviation Confirmed by Juju Brown [id number] on 05/24/2018 10:46:37 PM Referred By: Confirmed By:Juju Brown
== END 2018-05-24 13:16 | disposition home or self-care (01) ==
LOC: F2W 18:25
PROVIDERS: ADMIT Internal Medicine; ATTEND Internal Medicine
DX: I10 Essential (primary) hypertension (principal); I16.1 Hypertensive emergency; R07.9 Chest pain, unspecified; R51 Headache; R11.0 Nausea; I77.810 Thoracic aortic ectasia; E11.9 Type 2 diabetes mellitus without complications; E78.5 Hyperlipidemia, unspecified; Z23 Encounter for immunization
CPT/HCPCS: 70450; 71045; 71275; 74175; 90471; 93005; 93017; 99285; G0378; 82435-PO; 82565-PO; 82947-PO; 84132-PO; 84295-PO; 84484-ER; 84520-PO; 85014-ER; G0008; J0360; J1650; J1885; J2270; J2405; Q9967